=== PATIENT | female | born 1990 | race Caucasian/White ===

== ENCOUNTER 2016-12-27 11:17 | Emergency (ER) | payer OTHER ==
[~2016-12-27] VITALS: Ht 167.6 cm; Wt 70.0 kg
[~2016-12-27 11:17] MED LIST: KEPPRA
[2016-12-27 11:19] VITALS: BP 123/65
== END 2016-12-27 11:30 | disposition left against medical advice (07) ==
LOC: ER 11:30
DX: R56.9 Unspecified convulsions (principal); Z53.21 Procedure and treatment not carried out due to patient leaving prior to being seen by health care provider

== ENCOUNTER 2017-05-13 14:07 | Emergency (ER) | payer OTHER ==
[~2017-05-13] VITALS: Ht 167.6 cm; Wt 91.0 kg
[2017-05-13] MEDS ORDERED: CEFTRIAXONE SODIUM 1 G/VIAL IM ONE (14:45)
[2017-05-13] MEDS ORDERED: TETANUS AND DIPHTHERIA TOX/PF 0.5ML SYR (ADULT) IM ONE (14:45)
[2017-05-13] MEDS ORDERED: ONDANSETRON 4MG ODT PO ONE (15:00)
[2017-05-13] MEDS ORDERED: MORPHINE SULFATE 10 MG/ML CPJ IM ONE (15:00)
[2017-05-13] MEDS ORDERED: LIDOCAINE HCL 1% 20ML VIAL (Pyxis) INJ INFIL ONE ×2 (15:00→16:30)
[2017-05-13] MEDS ORDERED: TETANUS, DIPHTHERIA, PERTUSSIS VAC/PF 0.5ML (>7YR OLD) IM ONE (15:15)
[2017-05-13] MEDS ORDERED: LIDOCAINE HCL/PF 1% 10 MG/ML 5ML VIAL IJ NR (15:15)
[2017-05-13] MEDS ORDERED: LIDOCAINE HCL/PF 1% 10 MG/ML 5ML VIAL ONE (17:10)
[2017-05-13] MEDS ORDERED: HYDROCODONE/ACETAMINOPHEN 5/325MG TABLET PO ONE (17:45)
[2017-05-13] MEDS ORDERED: BACITRACIN ZINC OINT UDPKT TOP ONE (17:45)
[2017-05-13 17:50] VITALS: BP 96/61
== END 2017-05-13 18:08 | disposition home or self-care (01) ==
LOC: ER 14:37
DX: S01.311A Laceration without foreign body of right ear, initial encounter (principal); S08.112A Complete traumatic amputation of left ear, initial encounter; Y04.1XXA Assault by human bite, initial encounter; F17.200 Nicotine dependence, unspecified, uncomplicated; Z23 Encounter for immunization; Z90.49 Acquired absence of other specified parts of digestive tract; F12.10 Cannabis abuse, uncomplicated
CPT/HCPCS: 12011; 90471; 90715; 96372; 99284; J0696; J2270; J3490; Q0162; Z7610; 90714